=== PATIENT | female | born 1940 | race Caucasian/White ===

== ENCOUNTER → 2018-05-11 | Outpatient (CLI) | payer BC, MEDICARE ==
[~2018-05-11] MED LIST: ATOR10TA84 PO; CALC25 PO; CHOL4PAC8 PO; CINA30 PO; CLOP75 PO; FAMO20 PO; FURO20 PO; HYDR-3110 PO; HYDR-4455 PO; HYDR200T4 PO; LACT1CAP70 PO; LEVO50 PO; LOPE2 PO; METO50 PO; METR500 PO; OMEP20 PO; ROPI0.257 PO; VITAD1000 PO; [UNRECOGNIZED DRUG - CODE] PO
== END | disposition home or self-care (01) ==
LOC: RADMN 10:35
PROVIDERS: ATTEND Internal Medicine Nephrology
DX: M86.8X7 Other osteomyelitis, ankle and foot (principal); I70.90 Unspecified atherosclerosis